=== PATIENT | female | born 1985 | race Caucasian/White ===

== ENCOUNTER 2020-03-02 10:00 | Inpatient (IN) ==
[2020-03-02] MEDS ORDERED: Metoclopramide 10 MG/2 ML VIAL IVP ONE (10:28)
[2020-03-02] MEDS ORDERED: CeFAZolin 2,000 MG/50 ML BAG IVPB ONE (10:28)
[2020-03-02] MEDS ORDERED: Naloxone 0.4 MG/ML INJ IVP PRN (10:28)
[2020-03-02] MEDS ORDERED: Famotidine 20 MG/2 ML VIAL IVP ONE (10:28)
[2020-03-02] MEDS ORDERED: Ringers Solution, Lactated 1,000 ML IVC SCH (10:30)
[2020-03-02] MEDS ORDERED: *HR* Morphine Sulfate/PF 10 MG/10 ML AMPUL ONE (10:43)
[2020-03-02] MEDS ORDERED: *HR* FentaNYL (PF) 100 MCG/2 ML VIAL ONE (10:43)
[2020-03-02] MEDS ORDERED: *HR* Oxytocin 10 UNIT/ML VIAL IM ONE (10:43)
[2020-03-02] MEDS ORDERED: *HR* Phenylephrine 10 MG/ML VIAL ONE (10:44)
[2020-03-02] MEDS ORDERED: Ondansetron 4 MG/2 ML VIAL IVP PRN ×2 (11:24→15:50)
[2020-03-02] MEDS ORDERED: Acetaminophen IV 1,000 MG/100 ML INFUS..BTL IVPB ONE (11:24)
[2020-03-02] MEDS ORDERED: *HR* HYDROmorphone (PF) 1 MG/ML SYRINGE IVP PRN (11:24)
[2020-03-02 11:28] LABS: Basophils % 0.4 %; Eosinophils # 0.1 K/mcL (0.0-0.6); Eosinophils % 0.6 %; Hematocrit 35.8 % (35.3-44.9); Hemoglobin 11.4 g/dL (11.5-15.4); Immature Granulocytes % 0.4 % (0-4); Lymphocytes # 1.5 K/mcL (0.6-4.6); Lymphocytes % 17.6 %; Mean Corpuscular HGB Conc 31.8 g/dL (31.6-35.5); Mean Corpuscular Hemoglobin 28.6 pg (28.0-33.3); Mean Corpuscular Volume 89.9 fL (83.0-100.0); Mean Platelet Volume 10.8 fL (9.4-12.4); Monocytes # 0.7 K/mcL (0.0-1.3); Monocytes % 7.8 %; Neutrophils # 6.2 K/mcL (1.6-8.9); Platelet Count 233 K/mcL (140-400); Red Blood Count 3.98 M/mcL (3.82-4.97); Red Cell Distribution Width 14.7 % (11.5-14.5); Segmented Neutrophils % 73.2 %; White Blood Count 8.5 K/mcL (4.3-11.1)
[2020-03-02 12:07] LABS: Amphetamine Screen,Urine Negative ng/mL (Cutoff=1000); Barbiturate Screen,Urine Negative ng/mL (Cutoff=200); Benzodiazepines Screen,Urine Negative ng/mL (Cutoff=200); Cannabinoid Screen,Urine Negative ng/mL (Cutoff = 50); Cocaine Screen,Urine Negative ng/mL (Cutoff= 300); Opiate Screen,Urine Negative ng/mL (Cutoff=300); Phencyclidine Screen,Urine Negative ng/mL (Cutoff=25)
[2020-03-02] MEDS ORDERED: Oxytocin 20 units/ LR 1000 mL 20 UNIT/1,000 ML BAG IVC ONE (13:29)
[2020-03-02] MEDS ORDERED: Metoclopramide 10 MG/2 ML VIAL IVP PRN (15:50)
[2020-03-02] MEDS ORDERED: *HR* OxyCODONE/APAP 5/325 TABLET PO PRN (15:50)
[2020-03-02] MEDS ORDERED: Ibuprofen 600 MG TABLET PO PRN (15:50)
[2020-03-02] MEDS ORDERED: Acetaminophen 325 MG TABLET PO PRN (15:50)
[2020-03-02] MEDS ORDERED: Sennosides 8.6 MG TABLET PO PRN (15:50)
[2020-03-02] MEDS ORDERED: metroNIDAZOLE 500 MG TABLET PO SCH (15:50)
[2020-03-02] MEDS ORDERED: Simethicone 80 MG TAB.CHEW PO PRN (15:50)
[2020-03-02] MEDS ORDERED: MetroNIDAZOLE 500 MG/100 ML 500 MG/100 ML BAG IVPB SCH (16:30)
[2020-03-02] MEDS: Oxytocin 20 units/ LR 1000 mL 20 UNIT/1,000 ML BAG IVC SCH (16:41)
[2020-03-02] MEDS ORDERED: *HR* OxyCODONE Oral Soln 5 MG/5 ML UD.LIQ PO PRN (16:45)
[2020-03-02] MEDS: MetroNIDAZOLE 500 MG/100 ML 500 MG/100 ML BAG IVPB SCH (16:58)
[2020-03-02] MEDS: CeFAZolin 2 GM/120 ML BAG IVPB SCH (17:53)
[2020-03-03] MEDS: Docusate Oral Soln 100 MG/10 ML UDC PO SCH ×3 (00:04→19:28)
[2020-03-03] MEDS: Oxytocin 20 units/ LR 1000 mL 20 UNIT/1,000 ML BAG IVC SCH (00:12)
[2020-03-03] MEDS: MetroNIDAZOLE 500 MG/100 ML 500 MG/100 ML BAG IVPB SCH ×3 (00:13→15:31)
[2020-03-03] MEDS: CeFAZolin 2 GM/120 ML BAG IVPB SCH ×2 (03:05→09:13)
[2020-03-03 07:46] LABS: Basophils % 0.1 %; Eosinophils # 0.1 K/mcL (0.0-0.6); Eosinophils % 1.5 %; Hematocrit 30.2 % (35.3-44.9); Hemoglobin 9.6 g/dL (11.5-15.4); Immature Granulocytes % 0.4 % (0-4); Lymphocytes # 1.2 K/mcL (0.6-4.6); Lymphocytes % 15.2 %; Mean Corpuscular HGB Conc 31.8 g/dL (31.6-35.5); Mean Corpuscular Hemoglobin 28.9 pg (28.0-33.3); Monocytes # 0.5 K/mcL (0.0-1.3); Neutrophils # 5.7 K/mcL (1.6-8.9); Platelet Count 181 K/mcL (140-400); Red Blood Count 3.32 M/mcL (3.82-4.97); Red Cell Distribution Width 14.8 % (11.5-14.5); Segmented Neutrophils % 75.8 %; White Blood Count 7.6 K/mcL (4.3-11.1)
[2020-03-03] MEDS: Multivitamin Liquid 15 ML UDC PO SCH (07:52)
[2020-03-03] MEDS: Ferrous Sulfate Oral Soln 300 MG/5 ML UDC PO SCH (09:48)
[2020-03-03] MEDS ORDERED: Rho Immune Globulin 1,500 UNIT SYRINGE IM ONE (11:00)
[2020-03-04] MEDS: MetroNIDAZOLE 500 MG/100 ML 500 MG/100 ML BAG IVPB SCH ×2 (00:01→07:54)
[2020-03-04] MEDS: Docusate Oral Soln 100 MG/10 ML UDC PO SCH (07:50)
[2020-03-04] MEDS: Multivitamin Liquid 15 ML UDC PO SCH (07:50)
[2020-03-04] MEDS: Ferrous Sulfate Oral Soln 300 MG/5 ML UDC PO SCH (07:50)
[2020-03-04 08:18] VITALS: BP 106/73
== END 2020-03-04 14:40 | disposition home or self-care (01) | DRG 787 ==
LOC: 1NENULAB 10:02 → 1NENUOBS 15:15
PROVIDERS: ADMIT Obstetrics & Gynecology; ATTEND Obstetrics & Gynecology